=== PATIENT | male | born 1960 | race African-American/Black ===

== ENCOUNTER 2016-11-23 23:53 | Emergency (ER) | payer MEDICARE ==
[2016-11-24 00:02] VITALS: BP 143/85
[2016-11-24] MEDS ORDERED: Clotrimazole 1% CREAM* 30 GM TOPICAL ONE (04:50)
--- NOTE | 2016-11-24 04:56 | ED ---
Angie Arenas Alfonso, scribed for Temo Engle MD on 11/24/16 at 0423 . Skin Complaint - HPI Summary HPI Summary: This patient is a 56 year old M presenting to [facility] with a chief complaint of rash since 2 days ago. The rash began at the buttock and spread to the genital area. The patient rates the pain 8/10 in severity. Symptoms alleviated by nothing. Patient reports swelling, and testicular numbness. Patient denies fever , chills, and urinary symptoms. He reports increased physical exertion and sweating secondary to moving. PMHx includes CVA and HTN. - History of Current Complaint Chief Complaint: EDRashSkinAbscess Time Seen by Provider: 11/24/16 04:01 Stated Complaint: RASH Hx Obtained From: Patient Onset/Duration: Started Days Ago - 2, Still Present Timing: Constant Current Severity: Severe Pain Intensity: 8 Pain Scale Used: 0-10 Numeric Skin Location: Other: - began at the buttock and spread to the genital area Character: Swelling, Pain Alleviating Symptom(s): Nothing Associated Signs & Symptoms: Rash - Allergy/Home Medications Allergies/Adverse Reactions: Allergies Allergy/AdvReac Type Severity Reaction Status Date / Time No Known Allergies Allergy Verified 11/24/16 00:02 PMH/Surg Hx/FS Hx/Imm Hx Cardiovascular History: Reports: Hx Hypertension Opthamlomology History: Denies: Hx Legally Blind EENT History: Denies: Hx Deafness Neurological History: Reports: Hx CVA - x 2 Infectious Disease History: No Infectious Disease History: Denies: Traveled Outside the [place] in Last 30 Days - Family History Known Family History: Positive: Hypertension, Diabetes - Social History Alcohol Use: None Substance Use Type: Reports: None Smoking Status (MU): Former Smoker Review of Systems Negative: Fever, Chills Positive: no symptoms reported, other - testicular numbness Positive: Other - swelling Positive: Rash All Other Systems Reviewed And Are Negative: Yes Physical Exam - Summary Physical Exam Summary: General: well-appearing, no pain distress Skin: warm, color reflects adequate perfusion, dry. Creases of buttock and around scrotum and inguinal area have a moist rash with some swelling. No obvious open skin. Head: normal Eyes: EOMI, ADRI ENT: normal Neck: supple, nontender Respiratory: CTA, breath sounds present Cardiovascular: RRR Abdomen: soft, nontender Bowel: present Musculoskeletal: normal, strength/ROM intact Neurological: normal, sensory/motor intact, A&O x3 Psychological: affect/mood appropriate Triage Information Reviewed: Yes Vital Signs On Initial Exam: Initial Vitals Temp Pulse Resp BP Pulse Ox 97.8 F 68 18 143/85 99 11/24/16 00:00 11/24/16 00:00 11/24/16 00:00 11/24/16 00:00 11/24/16 00:00 Vital Signs Reviewed: Yes Diagnostics - Vital Signs Vital Signs Temp Pulse Resp BP Pulse Ox 11/24/16 00:00 97.8 F 68 18 143/85 99 - Laboratory Lab Statement: Any lab studies that have been ordered have been reviewed, and results considered in the medical decision making process. Course/Dx - Course Course Of Treatment: RX CLOTRIMAZOLE - Diagnoses Provider Diagnoses: Tinea cruris Discharge - Discharge Plan Condition: Stable Disposition: HOME Prescriptions: Clotrimazole 1% CREAM* [Clotrimazole 1%*] 1 applic TOPICAL BID #1 tube Patient Education Materials: Acute Rash (ED) Referrals: [facility] [Outside] Additional Instructions: FOLLOW UP WITH YOUR DOCTOR. APPLY CLOTRIMAZOLE TWICE A DAY TO THE AFFECTED AREA. KEEP THE AREA CLEAN AND DRY. RETURN TO THE EMERGENCY DEPARTMENT FOR ANY WORSENING OF YOUR CONDITION OR QUESTIONS OR CONCERNS. The documentation as recorded by the Angie torres Alfonso accurately reflects the service I personally performed and the decisions made by me, Temo Engle MD.
== END 2016-11-24 05:04 | disposition home or self-care (01) ==
LOC: ED 23:53
DX: B35.6 Tinea cruris (principal); R21 Rash and other nonspecific skin eruption; Z87.891 Personal history of nicotine dependence
CPT/HCPCS: 99282

== ENCOUNTER 2022-12-02 06:22 | Observation (INO) ==
[~2022-12-02 06:22] MED LIST: Buffered Lidocaine 1% SYRIN 1 ml INTRADERM ONE; Lactated Ringers 1000 ml BAG 1,000 ML IV SCH
[2022-12-02] MEDS ORDERED: Lidocaine 2% PF 5 ML VIAL ONE ×2 (06:28→06:51)
[2022-12-02] MEDS ORDERED: Ondansetron 4 mg VIAL 2 MG/ML 2 ml VIAL ONE (06:28)
[2022-12-02] MEDS ORDERED: Dexamethasone IV 4 MG/ML VIAL 1 ml VIAL ONE (06:28)
[2022-12-02] MEDS ORDERED: Propofol 10 MG/ML 20 ML BTL ONE ×3 (06:28→13:28)
[2022-12-02] MEDS ORDERED: fentaNYL 100 mcg/2 ml 50 MCG/ML VIAL ONE ×2 (06:28→14:03)
[2022-12-02] MEDS ORDERED: Midazolam 2 mg/2 ml VIAL 1 mg/ml 2 ml VIAL (2 mg) ONE ×2 (06:28→12:22)
[2022-12-02] MEDS ORDERED: Tranexamic Acid 1 GM/100ML BAG 2,000 MG/200 ML BAG IV ONE (06:59)
[2022-12-02] MEDS ORDERED: BUPIVACAINE **LIPOSOME/PF 13.3 MG/ML (266MG/ 20ML) VIAL (RESTRICTED) INFIL ONE (07:00)
[2022-12-02 07:01] LABS: Rapid COVID-19 Molecular Undetected (Undetected)
[2022-12-02] MEDS ORDERED: Clindamycin 300 MG/D5W BAG 300 MG/50 ML BAG IV ONE (07:01)
[2022-12-02] MEDS ORDERED: Clindamycin 600 MG/NS BAG(*) 600 MG/50 ML BAG ONE (07:01)
[2022-12-02] MEDS ORDERED: HYDROmorphone 1 MG/1 ML SYRINGE IV PRN (07:34)
[2022-12-02] MEDS ORDERED: Naloxone 0.4 mg VIAL 0.4 mg/ml 1 ml VIAL IV PRN (07:34)
[2022-12-02] MEDS ORDERED: Prochlorperazine 5 mg/ml 2 ml VIAL (10 mg) IV PRN (07:34)
[2022-12-02] MEDS ORDERED: Bupivacaine 0.25% SDV 30 ML ONE (09:11)
[2022-12-02] MEDS ORDERED: Glycopyrrolate IV 0.2 MG/ML 1 ML VIAL ONE ×2 (13:30→14:08)
[2022-12-02] MEDS ORDERED: KETAMINE HCL 10 MG/ML 20 ml VIAL (200 MG) ONE (13:31)
[2022-12-02] MEDS ORDERED: Lactulose 30 ml UDC PO PRN (15:31)
[2022-12-02] MEDS ORDERED: Magnesium Hydroxide LIQ 30 ML UDC PO PRN (15:31)
[2022-12-02] MEDS ORDERED: Ondansetron ODT 4 mg TAB 4 MG TAB PO PRN (15:31)
[2022-12-02] MEDS ORDERED: Ondansetron 4 mg VIAL 2 MG/ML 2 ml VIAL IV PRN (15:31)
[2022-12-02] MEDS: Lactated Ringers 1000 ml BAG 1,000 ML IV SCH (17:55)
[2022-12-02] MEDS: Clindamycin 600 MG/NS BAG(*) 600 MG/50 ML BAG IV SCH (19:42)
[2022-12-02] MEDS: Magnesium Hydroxide LIQ 30 ML UDC PO SCH (21:20)
[2022-12-02] MEDS: CMCS: Simvastatin 20 mg TAB (NF) PO SCH (21:22)
[2022-12-03] MEDS: Clindamycin 600 MG/NS BAG(*) 600 MG/50 ML BAG IV SCH ×2 (03:09→11:04)
[2022-12-03] MEDS: Lactated Ringers 1000 ml BAG 1,000 ML IV SCH (03:09)
[2022-12-03 06:15] LABS: Hematocrit 38.4 % (38-53); Hemoglobin 13.6 g/dL (13.2-16.3); Mean Platelet Volume 8.7 fL (7.5-11.2); Platelet Count 236 10^3/uL (150-450)
[2022-12-03 06:36] LABS: Calcium 9.5 mg/dL (8.6-10.3); Creatinine, Serum 1.09 mg/dL (0.67-1.17); Potassium 3.7 mmol/L (3.5-5.0); eGFR CKD-EPI 77.2 (>60)
[2022-12-03] MEDS: Magnesium Hydroxide LIQ 30 ML UDC PO SCH ×2 (08:22→21:32)
[2022-12-03] MEDS: Vitamin THERAPEUTIC TAB PO SCH (08:22)
[2022-12-03] MEDS: CMCS: Simvastatin 20 mg TAB (NF) PO SCH (21:32)
[2022-12-04 06:43] LABS: Hematocrit 34.8 % (38-53); Hemoglobin 12.3 g/dL (13.2-16.3); Mean Platelet Volume 8.4 fL (7.5-11.2); Platelet Count 204 10^3/uL (150-450)
[2022-12-04] MEDS: Vitamin THERAPEUTIC TAB PO SCH (09:06)
[2022-12-04] MEDS: Magnesium Hydroxide LIQ 30 ML UDC PO SCH ×2 (09:06→20:36)
[2022-12-04] MEDS: CMCS: Simvastatin 20 mg TAB (NF) PO SCH (20:36)
[2022-12-05 08:19] LABS: Hematocrit 32.6 % (38-53); Hemoglobin 11.6 g/dL (13.2-16.3); Platelet Count 216 10^3/uL (150-450)
[2022-12-05] MEDS: Magnesium Hydroxide LIQ 30 ML UDC PO SCH ×2 (11:20→21:00)
[2022-12-05] MEDS: Vitamin THERAPEUTIC TAB PO SCH (11:23)
[2022-12-05] MEDS: CMCS: Simvastatin 20 mg TAB (NF) PO SCH (20:58)
[2022-12-06 06:23] LABS: Hematocrit 31.7 % (38-53); Hemoglobin 11.2 g/dL (13.2-16.3); Mean Platelet Volume 8.2 fL (7.5-11.2); Platelet Count 247 10^3/uL (150-450)
[2022-12-06] MEDS: Magnesium Hydroxide LIQ 30 ML UDC PO SCH ×2 (10:49→21:16)
[2022-12-06] MEDS: Vitamin THERAPEUTIC TAB PO SCH (10:49)
[2022-12-06] MEDS: CMCS: Simvastatin 20 mg TAB (NF) PO SCH (21:16)
[2022-12-07 06:16] LABS: Hematocrit 33.6 % (38-53); Hemoglobin 11.7 g/dL (13.2-16.3); Mean Platelet Volume 8.1 fL (7.5-11.2); Platelet Count 295 10^3/uL (150-450)
[2022-12-07] MEDS: Vitamin THERAPEUTIC TAB PO SCH (09:01)
[2022-12-07] MEDS: Magnesium Hydroxide LIQ 30 ML UDC PO SCH (09:01)
[2022-12-07 14:21] VITALS: BP 130/64
== END 2022-12-07 15:00 | disposition home or self-care (01) ==
LOC: SSU 06:22 → OR 06:22
PROVIDERS: ADMIT Orthopaedic Surgery Sports Medicine; ATTEND Orthopaedic Surgery Sports Medicine